=== PATIENT | female | born 1945 ===

== ENCOUNTER 2018-04-17 19:16 | Emergency (ER) | payer SELFPAY ==
[2018-04-17] MEDS ORDERED: Lidocaine 1% w Epi 1:100,000 Inj INJ STA (19:38)
[2018-04-17] MEDS ORDERED: Tetanus/Diphtheria Toxoids 0.5 ml Syringe IM ONE ×2 (19:38→20:20)
--- NOTE | 2018-04-17 19:40 | C.PDOC ---
"History Of Present Illness Patient history was obtained via [employer] coder. 72 year old female is brought to the ED for evaluation of head injury and bilateral knee contusion s/p tripping and falling [employer]. Patient states she was trying to step over a baby gate and lost her balance causing her to fell forward and hit the edge of the table with her forehead. Patient is also c/o nausea, patient did not attempt ambulation after the fall. Patient denies LOC, dizziness, vomit, weakness, numbness, neck pain, CP, SOB, visual changes. PT ON PRADAXA FOR HEART STENT - HPI Time Seen by Provider: 04/17/18 19:30 Chief Complaint (Nursing): Trauma History Per: Patient History/Exam Limitations: language barrier Onset/Duration Of Symptoms: Hrs Injury Occurred (Timing): Just Before Arrival Location Of Injury: Right: Knee, Left: Knee, Anterior: Head (forehead) Recent travel outside of the [place]: No Additional History Per: Patient - Fall Fall:Prior To Injury: Tripped, Lost Balance Past Medical History Reviewed: Historical Data, Nursing Documentation, Vital Signs Vital Signs: Last Vital Signs Temp 97.9 F 04/17/18 19:24 Pulse 84 04/17/18 19:24 Resp 14 04/17/18 19:24 BP 169/84 H 04/17/18 20:48 Pulse Ox 97 04/17/18 21:57 - Medical History PMH: Gastritis, HTN Surgical History: No Surg Hx Family History: States: Unknown Family Hx - Social History Hx Alcohol Use: No Hx Substance Use: No Review Of Systems Constitutional: Negative for: Fever, Chills Eyes: Negative for: Vision Change Cardiovascular: Negative for: Chest Pain, Palpitations Respiratory: Negative for: Cough, Shortness of Breath Gastrointestinal: Positive for: Nausea. Negative for: Vomiting, Abdominal Pain Skin: Positive for: Other (laceration) Neurological: Positive for: Headache. Negative for: Weakness, Numbness, Dizziness Physical Exam - Physical Exam Appears: Non-toxic, In Acute Distress Skin: Normal Color, Warm, Dry Head: Atraumatic, Normacephalic, Laceration (forehead, no active bleeding) Eye(s): bilateral: Normal Inspection, PERRL, EOMI Ear(s): Bilateral: Normal Neck: Normal ROM, No Midline Cervical Tenderness, Supple, Other (C - Colar in place) Chest: Symmetrical Cardiovascular: Rhythm Regular Respiratory: Normal Breath Sounds, No Rales, No Rhonchi, No Wheezing Gastrointestinal/Abdominal: Soft, No Tenderness, No Guarding, No Rebound Back: No Vertebral Tenderness Extremity: Normal ROM, No Tenderness, Capillary Refill (< 2 seconds), No Swelling Extremity: Bilateral: Atraumatic Pulses: Left Dorsalis Pedis: Normal, Right Dorsalis Pedis: Normal Neurological/Psych: Oriented x3, Normal Speech, Normal Cognition, Normal Motor, Normal Sensation, Other (no focal deficits) Gait: Steady ED Course And Treatment - Laboratory Results Result Diagrams: 04/17/18 19:43 04/17/18 19:43 O2 Sat by Pulse Oximetry: 97 (ON RA) Pulse Ox Interpretation: Normal - Radiology CXR: Interpreted by Me CXR Interpretation: Yes: No Acute Disease - Other Rad PELVIS X-Ray: Interpreted by Me (NEG) B/L KNEE X-Ray: Interpreted by Me (?L TIB PLATEAU FX) - CT Scan/US CT head Other Rad Studies (CT/US): Read By Radiologist, Radiology Report Reviewed CT/US Interpretation: EXAM: CT Head Without Intravenous Contrast. EXAM DATE/ TIME: Examination ordered 04/17/2018 7:37 PM. Image number total count reviewed 322. CLINICAL HISTORY: The patient is 72 years old and is female; Injury or trauma; Fall; Initial encounter; Abrasion; Forehead. Facility exam id and description: Ct_heads head w/o contrast. TECHNIQUE: Axial computed tomography images of the head/brain without intravenous contrast. All CT scans at. this facility use at least one of these dose optimization techniques: automated exposure control; mA. and/or kV adjustment per patient size (includes targeted exams where dose is matched to clinical. indication); or iterative reconstruction. Coronal and sagittal reformatted images were created and reviewed. COMPARISON: No relevant prior studies available. FINDINGS: BRAIN: Unremarkable. No hemorrhage. No significant white matter disease. No edema. VENTRICLES: Unremarkable. No ventriculomegaly. BONES/JOINTS: Unremarkable. No acute fracture. SOFT TISSUES: Mild soft tissue swelling. VASCULATURE: Atherosclerosis. SINUSES: Unremarkable as visualized. No acute sinusitis. MASTOID AIR CELLS: Unremarkable as visualized. No mastoid effusion. ORBITS: Right lens surgery noted. IMPRESSION: Mild soft tissue swelling. Thank you for allowing us to participate in the care of your patient. CT lower extre.mities Other Rad Studies (CT/US): Read By Radiologist, Radiology Report Reviewed CT/US Interpretation: EXAM: CT Left Lower Extremity Without Intravenous Contrast, Knee. CLINICAL HISTORY: The patient is 72 years old and is female; Pain; Knee; Bilatera; Additional info: Trauma Facility exam. id and description : Ct_extlowncbi ext lower w/o contrast bi. TECHNIQUE: Axial computed tomography images of the left knee without intravenous contrast. All CT scans at this. facility use at least one of these dose optimization techniques: automated exposure control; mA. and/or kV adjustment per patient size ( includes targeted exams where dose is matched to clinical. indication); or iterative reconstruction. Coronal and sagittal reformatted images were created and reviewed. COMPARISON: No relevant prior studies available. FINDINGS: BONES/JOINTS: Mild osteoarthritis. Trace effusion. No acute fracture. No dislocation. SOFT TISSUES: Unremarkable. IMPRESSION: Mild osteoarthritis. Trace effusion. . EXAM: CT Right Lower Extremity Without Intravenous Contrast, Knee. EXAM DATE/TIME: LIGIA KRAUS | Preliminary Radiology Report. CONFIDENTIALITY STATEMENT. This report is intended only for the use of the referring physician, and only in accordance with law, If you received this in error, call [phone]. Page 2 of 2. Examination ordered 04/17/2018 8 :43 PM. Image number total count reviewed 0. CLINICAL HISTORY: The patient is 72 years old and is female; Pain; Knee; Bilatera; Additional info: Trauma Facility exam. id and description: Ct_extlowncbi ext lower w/o contrast bi. TECHNIQUE: Axial computed tomography images of the right knee without intravenous contrast. All CT scans at. this facility use at least one of these dose optimization techniques: automated exposure control; mA. and/or kV adjustment per patient size (includes targeted exams where dose is matched to clinical. indication); or iterative reconstruction. Coronal and sagittal reformatted images were created and reviewed. COMPARISON: No relevant prior studies available. FINDINGS: BONES/JOINTS: Mild osteoarthritis. Trace effusion. No acute fracture. No dislocation. SOFT TISSUES: Unremarkable. IMPRESSION: Mild osteoarthritis. Trace effusion. Thank you for allowing us to participate in the care of your patient. Dictated and Authenticated by: Vick Segura MD. 04/17/2018 9:33 PM Eastern Time ([place] & [place]) CT Cspine Other Rad Studies (CT/US): Read By Radiologist, Radiology Report Reviewed CT/US Interpretation: EXAM: CT Cervical Spine Without Intravenous Contrast. EXAM DATE/TIME: Examination ordered 04/17/2018 7:37 PM. Image number total count reviewed 425. CLINICAL HISTORY: The patient is 72 years old and is female; Injury or trauma; Fall; Initial encounter; Sprain or strain,. cervical ligaments Facility exam id and description: Ct_csps cervical spine w/o contrast. TECHNIQUE: Axial computed tomography images of the cervical spine without intravenous contrast. All CT scans. at this facility use at least one of these dose optimization techniques: automated exposure control;. mA and/or kV adjustment per patient size (includes targeted exams where dose is matched to clinical. indication); or iterative reconstruction. Coronal and sagittal reformatted images were created and reviewed. COMPARISON: No relevant prior studies available. FINDINGS: VERTEBRAE: Straightening of the cervical spine with degenerative changes through the cervical. spine. Grade 1 anterolisthesis of C3-4. Facet arthrosis. No acute fracture. DISCS/SPINAL CANAL/NEURAL FORAMINA: See above. SOFT TISSUES: Unremarkable. VASCULATURE: Atherosclerosis. LUNG APICES: Unremarkable as visualized. IMPRESSION: Straightening of the cervical spine with degenerative changes through the cervical spine. Grade 1. anterolisthesis of C3-4. Facet arthrosis. LIGIA KRAUS | Preliminary Radiology Report. CONFIDENTIALITY STATEMENT. This report is intended only for the use of the referring physician, and only in accordance with law, If you received this in error, call [phone]. Page 2 of 2. Thank you for allowing us to participate in the care of your patient. Dictated and Authenticated by: Vick Segura MD. 04/17/2018 9:29 PM Eastern Time ([place] & [place]) Laceration - Laceration Repair No standard instances Wound Length (In cm): 4 Description Of Wound: Clean, Irregular Wound Cleansed With: Betadine Anesthesia: Lidocaine 1%, With Epi Wound Examination: Irrigated With Saline, No FB With Wound Exploration Wound Closure: Suture Suture Technique And Material Used: Interrupted, Nylon (4.0 X 2), Prolene (5.0 X 5) Wound Complexity: Intermediate Progress - Re-Evaluation Re-evaluation Note: 04/17/18 21:57 SP LAC REPAIR. PS FEELS BETTER. NEURO INTACT. CT REPORTS REVIEWED - Data Reviewed Data Reviewed: Lab, Diagnostic imaging, Old records Medical Decision Making Medical Decision Making: Impression: head injury s/p trip and fall Plan: * CT head * CT c-spine * EKG * Labs * CXR * Knee X-Ray * Pelvis X-Ray * Tetanus immunization * Xylocaine 5 ml INJ Disposition Counseled Patient/Family Regarding: Studies Performed, Diagnosis, Need For Followup, Rx Given - Disposition Referrals: [facility] [Provider Group] Disposition: HOME/ ROUTINE Disposition Time: 22:16 Condition: IMPROVED Additional Instructions: RETURN IN 5-7 DAYS FOR SUTURE REMOVAL. TAKE TYLENOL DIRECTED FOR PAIN. RETURN IF WORSENING SYMPTOMS. Instructions: Laceration Repair With Stitches (DC), Minor Head Injury (DC), Contusion (DC) Forms: [facility] (Persian) - Clinical Impression Clinical Impression: Forehead laceration, Minor head injury without loss of consciousness, Knee contusion - Scribe Statement The provider has reviewed the documentation as recorded by the Scribe Johnson Joseph All medical record entries made by the Scribe were at my direction and personally dictated by me. I have reviewed the chart and agree that the record accurately reflects my personal performance of the history, physical exam, medical decision making, and the department course for this patient. I have also personally directed, reviewed, and agree with the discharge instructions and disposition."
[2018-04-17 19:45] VITALS: PULSE 84; RESP 14; TEMP 97.9; O2SAT 97
[2018-04-17 19:46] LABS: BASO % 0.3 % (0.0-2.0); EOS # 0.3 K/uL (0.0-0.7); EOS % 3.1 % (0.0-4.0); HEMOGLOBIN 12.2 g/dL (11.0-16.0); LYMPH # 3.2 K/uL (1.0-4.3); LYMPH % 35.3 % (20.0-40.0); MEAN CELL VOLUME 88.4 fL (81.0-99.0); MEAN CORPUSCULAR HEMOGLOBIN 29.5 pg (27.0-31.0); MEAN CORPUSCULAR HGB CONC 33.4 g/dL (33.0-37.0); MEAN PLATELET VOLUME 10.3 fL (7.2-11.7); MONO # 0.7 K/uL (0.0-0.8); MONO % 7.3 % (0.0-10.0); NEUT # 4.9 K/uL (1.8-7.0); NRBC % 0.1 % (0.0-2.0); RBC 4.12 Mil/uL (3.80-5.20); RED CELL DISTRIBUTION WIDTH 13.7 % (11.5-14.5); WHITE BLOOD COUNT 9.1 K/uL (4.8-10.8)
[2018-04-17 19:56] LABS: INR 1.2; PROTHROMBIN TIME 12.8 SECONDS (9.7-12.2)
[2018-04-17 20:00] LABS: ALB/GLOB RATIO 1.4 (1.0-2.1); ALBUMIN 4.5 g/dL (3.5-5.0); ALT/SGPT 14 U/L (9-52); AST/SGOT 23 U/L (14-36); BLOOD UREA NITROGEN 22 mg/dL (7-17); CALCIUM 9.3 mg/dl (8.6-10.4); GFR AFRICAN-AMERICAN > 60; GFR NON-AFRICAN AMERICAN > 60
[2018-04-17 20:48] VITALS: BP 169/84
--- NOTE | 2018-04-18 08:19 | RAD ---
Date of service: 04/17/2018 PROCEDURE: CHEST RADIOGRAPH, 1 VIEW HISTORY: TRAUMA COMPARISON: None available. FINDINGS: LUNGS: The lungs are well inflated. There is mild pulmonary venous congestion. PLEURA: No pneumothorax or pleural fluid seen. CARDIOVASCULAR: There is mild cardiomegaly. Atherosclerotic aortic arch calcifications are present. OSSEOUS STRUCTURES: No significant abnormalities. VISUALIZED UPPER ABDOMEN: Normal. OTHER FINDINGS: None. IMPRESSION: No acute findings.
--- NOTE | 2018-04-18 08:29 | RAD ---
Date of service: 04/17/2018 PROCEDURE: Radiographs of the pelvis. HISTORY: TRAUMA COMPARISON: None. FINDINGS: BONES: Pelvic Bones: Probable incidental sub cm bone islands left acetabulum Hips: Unremarkable JOINTS: Sacroiliac Joints: Unremarkable. Pubic Symphysis: Minimal degenerative change-bilateral OTHER FINDINGS: Right hemipelvic phleboliths. Degenerative disc space narrowing and inferior lumbar marginal osteophytosis. IMPRESSION: No fracture or dislocation. Senescent changes-as above
--- NOTE | 2018-04-18 08:40 | RAD ---
Date of service: 04/17/2018 PROCEDURE: Bilateral Knee Radiographs. HISTORY: TRAUMA COMPARISON: None. FINDINGS: BONES: Right Knee: No definitive fracture appreciated Left Knee: No definitive fracture appreciated JOINTS: Right Knee: Arthrosis Left knee: Arthrosis SOFT TISSUES: Right Knee: Normal. Left Knee: Normal. JOINT EFFUSION: Right Knee: None. Left Knee: None. OTHER FINDINGS: None. IMPRESSION: No definitive fracture appreciated. . Bilateral knee mild osteoarthrosis each medial femoral tibial and each patellofemoral joint affected. No gross joint effusion. Comments: vertical trabecular markings are slightly more prominent in the left proximal tibia - clinical significance, if any unclear. If there is clinical suspicion for a left tibial fracture, consider more sensitive evaluation with a CT or an MRI of that side.
--- NOTE | 2018-04-18 09:53 | CT ---
Date of service: 04/17/2018 PROCEDURE: CT HEAD WITHOUT CONTRAST. HISTORY: Trauma COMPARISON: None available. TECHNIQUE: Axial computed tomography images were obtained through the head/brain without intravenous contrast. Radiation dose: Total exam DLP = 964.36 MGy-cm. This CT exam was performed using one or more of the following dose reduction techniques: Automated exposure control, adjustment of the mA and/or kV according to patient size, and/or use of iterative reconstruction technique. FINDINGS: HEMORRHAGE: No intracranial hemorrhage. BRAIN: There is an old lacunar infarction versus perivascular space in the left basal ganglia. There is no mass, mass effect or abnormal extra-axial fluid collection. There is no territorial infarction. The midline sagittal structures are normal.There are coarse atherosclerotic calcifications in the cavernous carotid arteries. VENTRICLES: There is mild age-related global parenchymal volume loss and proportionate enlargement of the ventricles and cortical sulci. CALVARIUM: No calvarial fracture. Small left frontal scalp hematoma. Mild soft tissue swelling in the left medial periorbital region. PARANASAL SINUSES: Predominantly clear. MASTOID AIR CELLS: Predominantly clear. OTHER FINDINGS: None. IMPRESSION: No acute intracranial abnormality. Small left frontal scalp hematoma.
--- NOTE | 2018-04-18 10:01 | CT ---
Date of service: 04/17/2018 PROCEDURE: CT Cervical Spine without contrast HISTORY: Trauma COMPARISON: None available. TECHNIQUE: Axial computed tomography images were obtained of the cervical spine without the use of intravenous contrast. Coronal and sagittal reformatted images were created and reviewed. Radiation dose: Total exam DLP = 380.10 mGy-cm. This CT exam was performed using one or more of the following dose reduction techniques: Automated exposure control, adjustment of the mA and/or kV according to patient size, and/or use of iterative reconstruction technique. FINDINGS: VERTEBRAE: There is degenerative 5 mm anterior listhesis of C3 on C4. There is straightening of the cervical spine with loss of normal cervical lordosis. There is diffuse bone demineralization. There is no acute fracture or anterior listhesis. The craniocervical junction is normal. The atlantoaxial joint is normal. DISCS/SPINAL CANAL/NEURAL FORAMINA: There is multilevel degenerative disc disease with anterior osteophytes, reduced disc heights and multilevel facet arthropathy, worse at C5-6 and C6-7. No spinal canal stenosis. PARASPINAL SOFT TISSUES: The paraspinous soft tissues are normal. OTHER FINDINGS: No prevertebral soft tissue thickening. IMPRESSION: No acute fracture or traumatic anterior listhesis. Straightening of the cervical spine may be positional or related to muscle spasm. A preliminary report was provided by [facility].
--- NOTE | 2018-04-18 11:34 | CT ---
PROCEDURE: CT scan of bilateral joints without contrast. INDICATION: TECHNIQUE: Multiple axial images were obtained with slice thickness of 2.5 mm. Coronal and sagittal reformatted images were obtained. Iterative reconstruction was used. Radiation dose: Total exam DLP = 105.20 mGy-cm. This CT exam was performed using one or more of the following dose reduction techniques: Automated exposure control, adjustment of the mA and/or kV according to patient size, and/or use of iterative reconstruction technique. COMPARISON: Plain radiographs performed earlier the same day. FINDINGS: There is diffuse bone demineralization. There is no acute displaced fracture or bone destruction. Bone alignment is normal. There is mild tricompartmental degenerative osteoarthrosis with reduced joint spaces, marginal spurring and tibial spiking, worse in the medial compartments. There are trace joint effusions. The periarticular muscles are normal. There is mild prepatellar edema. IMPRESSION: No acute fracture or dislocation. Mild tricompartmental degenerative osteoarthrosis, worse in the medial compartments. A preliminary report was provided by [facility].
== END 2018-04-17 22:42 | disposition home or self-care (01) ==
LOC: C.ER 19:16
DX: S01.81XA Laceration without foreign body of other part of head, initial encounter (principal); S80.01XA Contusion of right knee, initial encounter; S80.02XA Contusion of left knee, initial encounter; W01.190A Fall on same level from slipping, tripping and stumbling with subsequent striking against furniture, initial encounter; Y92.89 Other specified places as the place of occurrence of the external cause; I10 Essential (primary) hypertension; Z23 Encounter for immunization
CPT/HCPCS: 12052; 70450; 71045; 72125; 72170; 73562; 73700; 80053; 85025; 85610; 85730; 90471; 90714; 96374; 99285; J2405

== ENCOUNTER 2018-04-24 19:05 | Emergency (ER) | payer SELFPAY ==
[2018-04-24 19:17] VITALS: BP 155/91; PULSE 92; RESP 18; TEMP 98.6; O2SAT 97
--- NOTE | 2018-04-24 19:45 | C.PDOC ---
History Of Present Illness 72yo female, comes to ER for suture removal s/p sustaining a laceration on 04/17 due to a trip and fall. She denies any new injuries and offers no other complaints. Time Seen by Provider: 04/24/18 19:17 Chief Complaint (Nursing): Wound Check History Per: Patient History/Exam Limitations: no limitations Onset/Duration Of Symptoms: Laceration Current Symptoms Are (Timing): Better Location Of Injury: Anterior: Head Quality Of Symptoms: denies: Painful, Itching, Swollen, Draining Additional History Per: Patient Past Medical History Reviewed: Historical Data, Nursing Documentation, Vital Signs Vital Signs: Last Vital Signs Temp 98.6 F 04/24/18 19:15 Pulse 92 H 04/24/18 19:15 Resp 18 04/24/18 19:15 BP 155/91 H 04/24/18 19:15 Pulse Ox 97 04/24/18 20:16 - Medical History PMH: Gastritis, HTN Surgical History: No Surg Hx Family History: States: Unknown Family Hx - Social History Hx Alcohol Use: No Hx Substance Use: No Review Of Systems Constitutional: Negative for: Fever, Chills ENT: Positive for: Other (healing laceration to forehead with [address] ) Skin: Positive for: Bruising (around left eye, improving) Neurological: Negative for: Weakness, Numbness, Headache Physical Exam - Physical Exam Appears: Non-toxic, No Acute Distress Skin: Warm, Dry Head: Other (well healing laceration with sutures in place above left eye brow. no surrounding erythema, edema or discharge.) Eye(s): bilateral: PERRL, EOMI, left: Other (fading ecchymosis around left medial eye) Neurological/Psych: Oriented x3, Normal Speech, Normal Cognition, Normal Motor, Normal Sensation ED Course And Treatment O2 Sat by Pulse Oximetry: 97 (RA) Pulse Ox Interpretation: Normal Medical Decision Making Medical Decision Makin sutures removed from well healing laceration to left forehead. steri strips applied after. Disposition Counseled Patient/Family Regarding: Diagnosis - Disposition Disposition: HOME/ ROUTINE Disposition Time: 19:44 Condition: GOOD Additional Instructions: Steri strips will fall off on their own. You may get face wet. Once strips fall off, apply sunscreen to area when outdoors. , Instructions: Stitches Removal Forms: [facility] (Angolan), General Discharge Instructions - Clinical Impression Clinical Impression: Visit for suture removal - PA / RESIDENTIAL PROPERTY MANAGER / Resident Statement MD/DO has reviewed & agrees with the documentation as recorded. - Scribe Statement The provider has reviewed the documentation as recorded by the Brennan Granados Provider Attestation: All medical record entries made by the Brennan were at my direction and personally dictated by me. I have reviewed the chart and agree that the record accurately reflects my personal performance of the history, physical exam, medical decision making, and the department course for this patient. I have also personally directed, reviewed, and agree with the discharge instructions and disposition.
== END 2018-04-24 19:49 | disposition home or self-care (01) ==
LOC: C.ER 19:05
DX: Z48.02 Encounter for removal of sutures (principal)

== ENCOUNTER 2018-05-26 16:26 | Emergency (ER) | payer SELFPAY ==
[2018-05-26 16:45] VITALS: RESP 18
--- NOTE | 2018-05-26 17:54 | C.PDOC ---
History Of Present Illness 73 y/o female, with PMHx of HTN, and "heart problems" on pradaxa, presents to ED c/o palpitations since this morning. Denies fever, vomiting, or other complaints. pt poor historian, ?h/o of afib. pt unsure. Time Seen by Provider: 05/26/18 17:42 Chief Complaint (Nursing): Palpitations History Per: Patient History/Exam Limitations: no limitations Past Medical History Reviewed: Historical Data, Nursing Documentation, Vital Signs Vital Signs: Last Vital Signs Temp 97.8 F 05/26/18 19:29 Pulse 82 05/26/18 19:29 Resp 18 05/26/18 19:33 BP 129/79 05/26/18 19:29 Pulse Ox 98 05/26/18 23:08 - Medical History PMH: Gastritis, HTN Family History: States: Unknown Family Hx - Social History Hx Alcohol Use: No Hx Substance Use: No Review Of Systems Except As Marked, All Systems Reviewed And Found Negative. Constitutional: Negative for: Fever, Chills Cardiovascular: Positive for: Palpitations. Negative for: Chest Pain Respiratory: Negative for: Shortness of Breath Physical Exam - Physical Exam Appears: Non-toxic, No Acute Distress Skin: Normal Color, Warm, Dry Head: Atraumatic, Normacephalic Eye(s): bilateral: Normal Inspection Oral Mucosa: Moist Cardiovascular: Rhythm Irregular (irregularly irregular) Respiratory: Normal Breath Sounds, No Rales, No Rhonchi, No Wheezing Gastrointestinal/Abdominal: Soft, No Tenderness Extremity: Normal ROM Neurological/Psych: Oriented x3, Normal Speech ED Course And Treatment - Laboratory Results Result Diagrams: 05/26/18 17:54 05/26/18 17:54 ECG: Interpreted By Me, Viewed By Me ECG Rhythm: Atrial Fibrillation Interpretation Of ECG: No prior EKG for comparison. Rate From EC (bpm) O2 Sat by Pulse Oximetry: 98 (RA) Pulse Ox Interpretation: Normal Medical Decision Making Medical Decision Making: cp/palpiations r/o acs- ?h/o fo afib. pt poor historian but on pradaxa Plan: Blood work Urinalysis EKG CXR This patient is choosing to leave against medical advice. I have personally explained to the pt that choosing to do so may result in permanent bodily harm or . I have discussed at great length that without further evaluation and monitoring there may be unforeseen circumstances and/or deterioration causing permanent bodily harm or as a result of their choice. The pt verbalized these risks back to the physician in laymans terms. The pt is alert, oriented, and shows the mental capacity to make clear decisions regarding the pts health care at this time. The pt continues to wish to leave against medical advice. In light of the pts decision to leave AMA, follow-up has been arranged and the pt is aware of the importance of following up as instructed. The pt has been advised that they should return to the ED immediately if they change their mind at any time, or if their condition begins to change or worsen in any way. labs neg. request pt be to be admitted to [facility]. she declines. signs ama. discussed thoroughly with pt and her daughter and son in law. state they live across street and will return with worsening. Disposition - Disposition Referrals: [facility] [Outside] [facility] [place] [Outside] [facility] [Outside] Yvon Naqvi MD [Staff Provider] - Disposition: HOME/ ROUTINE Disposition Time: 23:00 Condition: STABLE Additional Instructions: return to er with worsening symptoms or concerns. Instructions: Chest Pain, Palpitations, Leaving Against Medical Advice Forms: [facility] (Lebanese) - Clinical Impression Clinical Impression: Palpitations - Scribe Statement The provider has reviewed the documentation as recorded by the Scribe KP All medical record entries made by the Scribe were at my direction and personally dictated by me. I have reviewed the chart and agree that the record accurately reflects my personal performance of the history, physical exam, medical decision making, and the department course for this patient. I have also personally directed, reviewed, and agree with the discharge instructions and disposition.
[2018-05-26 17:58] LABS: BASO % 0.4 % (0.0-2.0); EOS # 0.2 K/uL (0.0-0.7); EOS % 2.2 % (0.0-4.0); HEMOGLOBIN 12.6 g/dL (11.0-16.0); LYMPH # 2.2 K/uL (1.0-4.3); MEAN CELL VOLUME 88.6 fL (81.0-99.0); MEAN CORPUSCULAR HEMOGLOBIN 29.7 pg (27.0-31.0); MEAN CORPUSCULAR HGB CONC 33.5 g/dL (33.0-37.0); MEAN PLATELET VOLUME 10.4 fL (7.2-11.7); MONO # 0.4 K/uL (0.0-0.8); MONO % 5.2 % (0.0-10.0); NEUT # 4.1 K/uL (1.8-7.0); NEUT % 60.2 % (50.0-75.0); NRBC % 0.1 % (0.0-2.0); RBC 4.24 Mil/uL (3.80-5.20); RED CELL DISTRIBUTION WIDTH 13.6 % (11.5-14.5); WHITE BLOOD COUNT 6.9 K/uL (4.8-10.8)
[2018-05-26 18:12] LABS: ALB/GLOB RATIO 1.4 (1.0-2.1); ALBUMIN 3.9 g/dL (3.5-5.0); ALT/SGPT 17 U/L (9-52); AST/SGOT 15 U/L (14-36); BLOOD UREA NITROGEN 19 mg/dL (7-17); CALCIUM 9.3 mg/dl (8.6-10.4); GFR NON-AFRICAN AMERICAN > 60
[2018-05-26 18:19] LABS: INR 1.4; PROTHROMBIN TIME 15.4 SECONDS (9.7-12.2)
[2018-05-26 19:30] VITALS: BP 129/79; TEMP 97.8
[2018-05-26 19:33] VITALS: PULSE 80
[2018-05-26 21:49] VITALS: O2SAT 98
--- NOTE | 2018-05-27 10:10 | RAD ---
Date of service: 05/26/2018 PROCEDURE: CHEST RADIOGRAPH, 1 VIEW HISTORY: Chest pain COMPARISON: Comparison chest 04/17/2018 FINDINGS: LUNGS: Suspect minor bibasilar PLEURA: No pneumothorax or pleural fluid seen. CARDIOVASCULAR: Normal. OSSEOUS STRUCTURES: No significant abnormalities. VISUALIZED UPPER ABDOMEN: Normal. OTHER FINDINGS: None. IMPRESSION: Atelectasis suspect minor bibasilar atelectasis
--- NOTE | 2018-05-28 15:54 | CARD ---
APPROVED REPORT Date of service: 05/26/2018 EKG Measurement Heart [id number] <Conclusion> Atrial fibrillation Nonspecific ST and T wave abnormality Abnormal ECG
== END 2018-05-26 19:34 | disposition home or self-care (01) ==
LOC: C.ER 16:26
DX: R00.2 Palpitations (principal); I10 Essential (primary) hypertension